=== PATIENT | female | born 1955 | race Caucasian/White ===

== ENCOUNTER → 2017-12-09 09:47 | Outpatient (CLI) | payer BC, SELFPAY ==
--- NOTE | 2017-12-09 09:51 | MM_ITS ---
MM Dig screening mamm BI w/CAD CAD Screening COMPARISON: Digital mammograms 10/30/2010 INDICATION: There is no personal or family history of breast cancer TECHNIQUE: Standard CC and MLO images were obtained. R2 CAD reviewed. FINDINGS: Scattered fibroglandular densities are seen throughout both breasts. There are couple benign-appearing calcifications left breast. There is an asymmetric density upper outer quadrant left breast highlighted by CAD which has benign features but is not definitely seen on the previous mammogram. Recommend the patient return for spot compression views and ultrasound. There are no suspicious microcalcifications. IMPRESSION: Fibrofatty parenchyma with asymmetric density left breast BI-RADS Category: 0 Need Additional Imaging Evaluation RECOMMENDED FOLLOW-UP: IMM - IMMEDIATE FOLLOW-UP RECOMMENDED (A letter has been sent to the patient regarding results of the study.)
--- NOTE | 2017-12-09 09:52 | XR_ITS ---
XR DEXA axial skeleton COMPARISON: None HISTORY: Patient is postmenopausal, history of fracture as an adult TECHNIQUE: DEXA scanning lumbar spine and bilateral hips FINDINGS: The areas BMD lumbar spine L1-L4 is 1.087 g/sq cm the T score -0.8 the total BMD right hip is 0.850 g/sq cm with T score of -1.2 and the right femoral neck is 0.762 g/sq cm with a T score of -2.0. The left hip values are similar. IMPRESSION: Normal value lumbar spine, mild osteopenia of both hips, consider follow-up study in approximately 2 years
== END ==
PROVIDERS: Family Provider Family Medicine; PCP Family Medicine; Visit Provider Family Medicine
DX: Z12.31 Encounter for screening mammogram for malignant neoplasm of breast (principal); M85.89 Other specified disorders of bone density and structure, multiple sites
CPT/HCPCS: 77067; 77080

== ENCOUNTER → 2017-12-27 12:55 | Outpatient (CLI) | payer BC, SELFPAY ==
--- NOTE | 2017-12-27 13:04 | MM_ITS ---
MM Dig spot mag LT, US breast LT complete COMPARISON: 12/09/2017 INDICATION: Follow-up abnormal mammogram ORDERING PHYSICIAN: John Wharton MD PATIENT AGE: 62 years TECHNIQUE: Problem-solving views performed of the left breast along with left breast ultrasound FINDINGS: Left mammogram: The asymmetric density in the outer aspect of the left breast did not compress out and measured approximately 7 mm fairly well-circumscribed with some obscuration of the posterior aspect of the nodule. Left breast ultrasound: The nodule 1:00 represents a simple cyst at 7 mm. No suspicious nodules evident. IMPRESSION: Left breast nodule corresponds to benign-appearing cyst BI-RADS Category: 2 Benign Finding(s) RECOMMENDED FOLLOW-UP: 1YR - 1 YEAR FOLLOW-UP (A letter has been sent to the patient regarding results of the study.)
== END ==
PROVIDERS: Family Provider Family Medicine; PCP Family Medicine; Visit Provider Family Medicine
DX: R92.8 Other abnormal and inconclusive findings on diagnostic imaging of breast (principal)
CPT/HCPCS: 76641; 77065